=== PATIENT | female | born 1925 | race Caucasian/White ===

== ENCOUNTER → 2016-10-10 | Outpatient (CLI) | payer OTHER ==
[~2016-10-10] MED LIST: ACET-1256 PO; ASPI81TA28 PO; BIOT1CHW PO; BLUE EMU EXT; CALC200T; CALC600T9 PO; CHOL100010 PO; GLC/500 PO; LOSA50TA6 PO; LOVA20TA4 PO; MAGN400T6 PO; MISCCAP80 PO; MULT-506 PO; SYN50 PO; TYL325X PO
[2016-10-10 17:17] LABS: ALT/SGPT 16 U/L (12-78); AST/SGOT 14 U/L (15-37); BLOOD UREA NITROGEN 24 mg/dl (7-18); CALCIUM 9.8 mg/dl (8.5-10.1); CARBON DIOXIDE 30 mmol/L (21-32); CHLORIDE 106 mmol/L (98-107); CREATININE 0.89 mg/dl (0.60-1.20); GLUCOSE 92 mg/dl (70-99); SODIUM 141 mmol/L (136-145)
[2016-10-10 17:28] LABS: ALKALINE PHOSPHATASE 60 U/L (45-117); CHOLESTEROL 198 mg/dl (0-200); CHOLESTEROL/HDL RATIO 3.4; HDL CHOLESTEROL 59 mg/dl; LDL CHOLESTEROL CALCULATED 99 mg/dl; TRIGLYCERIDES 200 mg/dl (0-150); VERY LOW DENSITY LIPOPROT CALC 40 mg/dl
[2016-10-11 07:12] LABS: ESTIMATED AVERAGE GLUCOSE 131 mg/dl; HA1C FLAG Normal (Normal)
== END | disposition home or self-care (01) ==
LOC: C.LABBC 14:22
PROVIDERS: ATTEND Family Medicine
DX: I10 Essential (primary) hypertension (principal); E03.9 Hypothyroidism, unspecified; E55.9 Vitamin D deficiency, unspecified; E11.9 Type 2 diabetes mellitus without complications; E78.5 Hyperlipidemia, unspecified

== ENCOUNTER → 2017-01-23 | Outpatient (CLI) | payer OTHER ==
[~2017-01-23] MED LIST changes: -ACET-1256 PO; -BIOT1CHW PO; -BLUE EMU EXT
--- NOTE | 2017-01-23 16:10 | MAMMOGRAPHY REPORT ---
ULTRASOUND OF RIGHT BREAST: 01/23/2017 CLINICAL HISTORY: The patient is status post right mastectomy many years ago. She also had a local r ecurrence years ago in which she underwent additional surgery and radiation. The patient reports a n ew palpable lump at the mastectomy bed. COMPARISON: No prior exams were available for comparison. TECHNIQUE: Real-time targeted ultrasound of the right breast was performed. FINDINGS: Real-time, high resolution targeted ultrasound was performed of the area of the palpable lump pointed out by the patient, at the right mastectomy bed immediately inferior to her mastectomy scar. At the site of the palpable lump there is an ill-defined hypoechoic mass which measures 7 x 5 x 4 m. The u ltrasound features are nonspecific and could represent fat necrosis/postsurgical changes versus malig juan. Recommend ultrasound-guided core needle biopsy for further evaluation. IMPRESSION: ACR BI-RADS CATEGORY 4: SUSPICIOUS - FOLLOW-UP RECOMMENDED Indeterminate hypoechoic 7 mm mass at the site of the palpable lump at the right mastectomy bed. The mass is indeterminant and ultrasound guided core needle biopsy is recommended for further evaluation . A phone call was made to the physician's office to confirm faxed results were received. The patient was verbally notified of the results. She tentatively scheduled the biopsy before leaving the depart ment. I will leave it up to the patient's prescribing physician if she can safely discontinue baby a spirin for 5-7 days prior to the procedure. Sherice Eisenberg M.D. /:01/23/2017 14:52:34 Camp Boss: Sherice Eisenberg MD, [facility] letter sent: Abnormal 4/5 BI-RADS Code: ACR BI-RADS Category 4: Suspicious
== END | disposition home or self-care (01) ==
LOC: C.MAMM 13:56
PROVIDERS: ATTEND Internal Medicine Hematology & Oncology
DX: N63 Unspecified lump in breast (principal)

== ENCOUNTER → 2017-02-07 | Outpatient (CLI) | payer OTHER ==
--- NOTE | 2017-02-07 13:37 | Discharge Instructions ---
Discharge Instructions Procedure Procedure Date: Feb 07, 2017. Reason for visit: Right Mass. Discharge Discharge Date: Feb 07, 2017. Discharge Diagnosis: status post breast bx Instructions Activity Recommendations: Additional Limitations (see below) Return to School/Work: no limitations Recommended Home Diet: No Limitations Provider Instructions: ACTIVITY RECOMMENDATIONS: * No lifting, pushing, pulling or exercising the affected side for three days. RETURN TO SCHOOL/WORK: * You may return to work/school after the procedure, but do not perform any strenuous activities for 24 to 48 hours. MEDICATIONS: * Tylenol (two 325 mg) every four to six hours if needed for mild pain (if not allergic to Tylenol). DIET: * Resume previous diet. SPECIAL CARE INSTRUCTIONS: * Keep biopsy site dry for 24 hours. May shower after 24 hours, but do not soak (bathe) incision. * May remove Tegaderm (plastic patch) tomorrow AFTER showering. * Leave the steri-strips on for one week. Allow the steri-strips to fall off by themselves. If not off after one week, you may remove them. You may place a Bandaid crosswise over the strips, if desired. * Apply ice 10 minutes on and 10 minutes off as needed. * Wear a bra at bedtime to sleep more comfortably for 2-3 days. * Your referring physician should have the results after approximately 5 to 7 business days. * Call for unusual bleeding, fever, drainage, etc or if you have any questions call during normal business hours or after hours call Dr Eisenberg, . FOLLOW UP VISIT: Follow-up with Referring Physician as scheduled. Allergies Coded Allergies: Ibuprofen (Unverified Allergy, Severe, DISORIENTED, 08/21/15) Shellfish (Unverified Allergy, Severe, TONGUE SWELLING, INCREASED BODY TEMP, 08/21/15) Shellfish Allergy (Unverified Allergy, Severe, TONGUE SWELLING, INCREASED BODY TEMP, 08/21/15) Shellfish-derived Products (Unverified Allergy, Severe, TONGUE SWELLING, INCREASED BODY TEMP, 08/21/15) Arron Mckeon Recommendations: Call your doctor if: * Temperature above 101 degrees * Pain not relieved by pain medicine ordered * There is increased drainage or redness from any incision * You have any unanswered questions or concerns. Your Doctors Instructions noted above were prepared by provider Sherice Eisenberg. Patient Signature Section: Patient Instructions Signature Page Divya Shannon Patient (or Guardian) Signature/Date: I have read and understand the instructions given to me by my caregivers. Caregiver/RN/Doctor Signature/Date: The above-named patient and/or guardian has received patient instructions on this date. + Original Patient Signature Page (only) stays with chart. Please make copy for patient.
--- NOTE | 2017-02-07 15:48 | MAMMOGRAPHY REPORT ---
THIS REPORT HAS BEEN AMENDED. FINE NEEDLE ASPIRATION RIGHT BREAST: 02/07/2017 CLINICAL HISTORY: Palpable hypoechoic mass at the right mastectomy bed. COMPARISON: Comparison is made to exam dated: 01/23/2017 ultrasound - [facility]. PATIENT CONSENT: The procedure, risks and benefits were discussed with the patient and informed writt en consent was obtained. A timeout was performed immediately prior to the procedure. PROCEDURE DESCRIPTION: With ultrasound guidance, aseptic technique, and lidocaine as the local anesth etic (1% lidocaine to anesthetize the skin and 1% lidocaine with epinephrine to anesthetize the deepe r tissues), an attempt was made to biopsy the hypoechoic mass using a 14-gauge achieve biopsy device as well as an 18-gauge Quick-Core biopsy device. However, an open bevel technique had to be used as the mass was so close to the chest wall that a throw could not safely be performed. Using the open b evel technique, the biopsy devices would not advance into the mass to adequately take samples. There fore, the decision was made to perform fine-needle aspiration of the mass. Approximately 5 passes we re made into the mass using 22-gauge needles attached to syringes. The samples were placed in CytoLy t and sent to cytology for analysis. Direct pressure was applied to the site immediately post procedu re and hemostasis was achieved. During the fine-needle aspiration, it felt that the mass could possi jolie be calcified. A mammogram was attempted of the area to assess for calcifications, however, there was not enough tissue to perform a mammogram. The patient tolerated the procedure without complication. She was given wound care instructions. IMPRESSION: FINE NEEDLE ASPIRATION Ultrasound-guided core needle biopsy of the palpable hypoechoic mass at the right mastectomy bed coul d not be performed as described above. Therefore, fine-needle aspiration was attempted and samples w ere sent to cytology for analysis. Will await pathology results to see if the samples are sufficient for diagnosis. If the results are inconclusive, then consider repeat fine-needle aspiration by the pathology department or surgical biopsy. Sherice Eisenberg M.D. ah/:02/07/2017 14:39:59 [place] Worker: Fadia Humphries, [facility] AMENDMENT: 02/12/2017 Sherice Eisenberg M.D. Pathology results from FNA of the palpable mass at the right mastectomy bed were reviewed on 7. The pathology shows scattered degenerate lymphocytes and PMN leukocytes, however, the specimen is insufficient for diagnosis. Given that the FNA is non diagnostic, consider surgical biopsy for furt her evaluation.
== END | disposition home or self-care (01) ==
LOC: C.MAMM 12:40
PROVIDERS: ATTEND Internal Medicine Hematology & Oncology
DX: N63 Unspecified lump in breast (principal)